=== PATIENT | male | born 1955 | race Caucasian/White ===

== ENCOUNTER 2020-03-30 08:17 | Day surgery (SDC) | payer OTHER ==
[~2020-03-30] VITALS: Ht 172.7 cm; Wt 72.1 kg
[~2020-03-30 08:17] MED LIST: ELA50 PO; HORIZANT600 M1 PO; NOR10T PO; PROPRANOLOL HCL40 MG PO; TAMSULOSIN HCL0.4 MG PO; TOPIRAMATE50 M1 PO; ZIPSOR25 MG PO; ZOL100 PO
[2020-03-30 08:59] VITALS: BP 136/98
[2020-03-30 15:19] VITALS: BP 118/83
== END 2020-03-30 15:05 | disposition home or self-care (01) ==
LOC: DS 08:17 → OR 13:30 → DS 15:05
PROVIDERS: ATTEND Orthopaedic Surgery
DX: S90.31XA Contusion of right foot, initial encounter (principal); I10 Essential (primary) hypertension; Z98.890 Other specified postprocedural states; Z79.899 Other long term (current) drug therapy; X58.XXXA Exposure to other specified factors, initial encounter; Y93.89 Activity, other specified; Y92.89 Other specified places as the place of occurrence of the external cause; Y99.8 Other external cause status
CPT/HCPCS: J0330; J0690; J2175; J2250; J2405; J2704; J3010; J3490; J7120